=== PATIENT | female | born 1975 | race Two or more races ===

== ENCOUNTER 2024-06-13 08:53 | Outpatient (CLI) | payer OTHER | END 2024-06-13 09:05 | disposition home or self-care (01) | LOC: SONOGRAMA 08:53 | PROVIDERS: ATTEND Obstetrics & Gynecology Gynecology | DX: N84.0 Polyp of corpus uteri (principal); N60.11 Diffuse cystic mastopathy of right breast; N60.12 Diffuse cystic mastopathy of left breast; R87.810 Cervical high risk human papillomavirus (HPV) DNA test positive; R87.610 Atypical squamous cells of undetermined significance on cytologic smear of cervix (ASC-US); N87.0 Mild cervical dysplasia; N93.0 Postcoital and contact bleeding; R68.82 Decreased libido; N95.0 Postmenopausal bleeding; N92.1 Excessive and frequent menstruation with irregular cycle; A60.04 Herpesviral vulvovaginitis ==